=== PATIENT | male | born 1995 ===

== ENCOUNTER 2021-03-18 14:44 | Outpatient (CLI) | payer OTHER | END 2021-03-18 15:57 | disposition home or self-care (01) | LOC: OFIC 805 14:44 | PROVIDERS: ATTEND Otolaryngology Otology & Neurotology | DX: R42 Dizziness and giddiness (principal); F41.0 Panic disorder [episodic paroxysmal anxiety]; F41.8 Other specified anxiety disorders ==

== ENCOUNTER 2025-08-23 11:42 | Outpatient (CLI) | payer OTHER | END 2025-08-23 11:53 | disposition home or self-care (01) | LOC: SONOGRAMA 11:42 | PROVIDERS: ATTEND Internal Medicine | DX: E04.2 Nontoxic multinodular goiter (principal) ==